=== PATIENT | male | born 1990 | race Caucasian/White ===

== ENCOUNTER 2020-07-17 15:44 | Day surgery (SDC) | payer OTHER ==
[2020-07-17] MEDS ORDERED: SODIUM CHLORIDE 0.9% 1,000 ML IV STA (16:26)
[2020-07-17] MEDS ORDERED: ONDANSETRON 4 MG/2 ML VIAL IVP STA (16:26)
[2020-07-17] MEDS ORDERED: HYDROmorphone 1 MG/ML CARPUJECT IVP STA ×3 (16:26→21:06)
[2020-07-17 16:31] LABS: BASOPHILS # (AUTO) 0.1 10^3/uL (0.0-0.1); BASOPHILS % (AUTO) 0.4 %; EOSINOPHILS % (AUTO) 0.2 %; HCT - HEMATOCRIT 49.2 % (42.0-52.0); HGB - HEMOGLOBIN 17.2 g/dL (14.0-18.0); LYMPHOCYTES # (AUTO) 1.2 10^3/uL (1.5-3.5); LYMPHOCYTES % (AUTO) 6.3 %; MEAN CORPUSCULAR HEMOGLOBIN 32.2 pg (27.0-31.0); MEAN CORPUSCULAR VOLUME 92.1 fL (80.0-94.0); MEAN PLATELET VOLUME 9.8 fL (7.4-11.4); MONOCYTES # (AUTO) 0.8 10^3/uL (0.0-1.0); MONOCYTES % (AUTO) 4.1 %; NEUTROPHILS # (AUTO) 17.1 10^3/uL (1.5-6.6); NEUTROPHILS % (AUTO) 88.5 %; PLT - PLATELET COUNT 326 10^3/uL (130-450); RED BLOOD COUNT 5.34 10^6/uL (4.70-6.10); WHITE BLOOD COUNT 19.4 x10^3/uL (4.8-10.8)
--- NOTE | 2020-07-17 16:43 | ED Physician Documentation ---
History of Present Illness - Stated complaint Stated Complaint: ABD PX - Chief complaint Chief Complaint: Abd Pain - History obtained from History obtained from: Patient - History of Present Illness Timing: Prior to arrival - Additonal information Additional information: 29-year-old male presents emergency department with acute onset lower abdominal pain. Began this a.m. after he had his regular bowel movement. He reports it began in the periumbilical area and migrated to the right lower quadrant. Has had persistent pain since. Has difficult time finding a comfortable position no fever or vomiting. No history of similar. Denies any history of previous surgical interventions. has a hx of asthma. takes ventolin. non smoker Otherwise healthy. Review of Systems Constitutional: reports: Reviewed and negative Ears: reports: Reviewed and negative Nose: reports: Reviewed and negative Throat: reports: Reviewed and negative Cardiac: reports: Reviewed and negative Respiratory: reports: Reviewed and negative GI: reports: Abdominal Pain. denies: Nausea, Vomiting, Constipation, Diarrhea : reports: Reviewed and negative Skin: reports: Rash Musculoskeletal: reports: Reviewed and negative Neurologic: reports: Reviewed and negative Psychiatric: reports: Reviewed and negative Endocrine: reports: Reviewed and negative PD PAST MEDICAL HISTORY - Past Medical History Past Medical History: No - Past Surgical History Past Surgical History: No - Present Medications Home Medications: Ambulatory Orders Medication Instructions Recorded Confirmed Albuterol Sulf [Ventolin Hfa 1 - 2 puffs INH Q4HR PRN 07/17/20 07/17/20 Inhaler] Fluticasone 44 Mcg [Flovent] 1 puffs INH BID 07/17/20 07/17/20 - Allergies Allergies/Adverse Reactions: Allergies Allergy/AdvReac Type Severity Reaction Status Date / Time No Known Drug Allergies Allergy Verified 07/17/20 15:54 - Social History Does the pt smoke?: No Smoking Status: Never smoker Does the pt drink ETOH?: No Does the pt have substance abuse?: No - Immunizations Immunizations are current?: Yes - POLST Patient has POLST: No PD ED PE NORMAL - General General: Alert and oriented X 3, No acute distress - HEENT HEENT: PERRL - Neck Neck: Supple, no meningeal sign - Cardiac Cardiac: RRR, No murmur - Respiratory Respiratory: No respiratory distress, Clear bilaterally - Abdomen Abdomen: Normal bowel sounds, Soft. No: Non tender (Focal tenderness right lower quadrant. Positive McBurney's. Negative Chowdhury's.) - Derm Derm: Warm and dry - Extremities Extremities: No deformity Results - Vitals Vitals: Vital Signs - 24 hr 07/17/20 07/17/20 07/17/20 15:51 15:53 17:45 Temperature 35.8 C L 36.5 C Heart Rate 92 92 60 Respiratory 16 16 20 Rate Blood Pressure 147/73 H 147/73 H 141/83 H O2 Saturation 97 97 99 Oxygen O2 Source Room air - Labs Labs: Laboratory Tests 07/17/20 07/17/20 07/17/20 15:59 16:10 16:10 WBC 19.4 H RBC 5.34 Hgb 17.2 Hct 49.2 MCV 92.1 MCH 32.2 H MCHC 35.0 RDW 12.0 Plt Count 326 MPV 9.8 Neut # (Auto) 17.1 H Lymph # (Auto) 1.2 L [place] # (Auto) 0.8 Eos # (Auto) 0.0 Baso # (Auto) 0.1 Absolute Nucleated RBC 0.00 Nucleated RBC % 0.0 Sodium 135 Potassium 3.8 Chloride 101 Carbon Dioxide 27 Anion Gap 7.0 BUN 14 Creatinine 0.7 Estimated GFR (MDRD) 132 Glucose 113 H Calcium 10.2 Total Bilirubin 1.2 H AST 30 ALT 25 Alkaline Phosphatase 46 Total Protein 8.2 Albumin 5.0 Globulin 3.2 Albumin/Globulin Ratio 1.6 Lipase 28 Urine Color YELLOW Urine Clarity CLEAR Urine pH 7.5 Ur Specific [place] 1.020 Urine Protein NEGATIVE Urine Glucose (UA) NEGATIVE Urine Ketones TRACE Urine Occult Blood NEGATIVE Urine Nitrite NEGATIVE Urine Bilirubin NEGATIVE Urine Urobilinogen 0.2 (NORMAL) Ur Leukocyte Esterase NEGATIVE Ur Microscopic Review NOT INDICATED Urine Culture Comments NOT INDICATED Nasal Adenovirus (PCR) Nasal B. parapertussis DNA (PCR) Nasal Coronavir 229E PCR Nasal Coronavir HKU1 PCR Nasal Coronavir NL63 PCR Nasal Coronavir OC43 PCR Nasal Enterovir/Rhinovir PCR Nasal Influenza B PCR Nasal Influenza A PCR Nasal Parainfluen 1 PCR Nasal Parainfluen 2 PCR Nasal Parainfluen 3 PCR Nasal Parainfluen 4 PCR Nasal RSV (PCR) Nasal B.pertussis DNA PCR Nasal C.pneumoniae (PCR) Abad Human Metapneumo PCR Nasal M.pneumoniae (PCR) Nasal SARS-CoV-2 (PCR) 12/24/20 16:48 WBC RBC Hgb Hct MCV MCH MCHC RDW Plt Count MPV Neut # (Auto) Lymph # (Auto) [place] # (Auto) Eos # (Auto) Baso # (Auto) Absolute Nucleated RBC Nucleated RBC % Sodium Potassium Chloride Carbon Dioxide Anion Gap BUN Creatinine Estimated GFR (MDRD) Glucose Calcium Total Bilirubin AST ALT Alkaline Phosphatase Total Protein Albumin Globulin Albumin/Globulin Ratio Lipase Urine Color Urine Clarity Urine pH Ur Specific [place] Urine Protein Urine Glucose (UA) Urine Ketones Urine Occult Blood Urine Nitrite Urine Bilirubin Urine Urobilinogen Ur Leukocyte Esterase Ur Microscopic Review Urine Culture Comments Nasal Adenovirus (PCR) NOT DETECTED Nasal B. parapertussis DNA (PCR) NOT DETECTED Nasal Coronavir 229E PCR NOT DETECTED Nasal Coronavir HKU1 PCR NOT DETECTED Nasal Coronavir NL63 PCR NOT DETECTED Nasal Coronavir OC43 PCR NOT DETECTED Nasal Enterovir/Rhinovir PCR NOT DETECTED Nasal Influenza B PCR NOT DETECTED Nasal Influenza A PCR NOT DETECTED Nasal Parainfluen 1 PCR NOT DETECTED Nasal Parainfluen 2 PCR NOT DETECTED Nasal Parainfluen 3 PCR NOT DETECTED Nasal Parainfluen 4 PCR NOT DETECTED Nasal RSV (PCR) NOT DETECTED Nasal B.pertussis DNA PCR NOT DETECTED Nasal C.pneumoniae (PCR) NOT DETECTED Abad Human Metapneumo PCR NOT DETECTED Nasal M.pneumoniae (PCR) NOT DETECTED Nasal SARS-CoV-2 (PCR) NOT DETECTED - Rads (name of study) CT abd Radiology: Final report received (Findings consistent with acute nonperforated appendicitis) PD MEDICAL DECISION MAKING - ED course Complexity details: reviewed results, re-evaluated patient, considered differential, d/w patient, d/w it infrastructure consultant (Liya) ED course: 29-year-old male presents the emergency department with acute right lower quadrant abdominal pain. Marked leukocytosis on CBC. No significant vital sign aberrations. A CT of the abdomen shows acute uncomplicated nonperforated appendicitis. 3.375 g of Zosyn has been ordered. At 1810 I did speak with Dr. Nickerson the surgeon on-call. He agrees to admit the patient likely overnight for surgical procedure in the a.m. Patient is to be n.p.o. Departure - Departure Disposition: ED Transfer to [facility] Clinical Impression: Acute appendicitis Qualifiers: Acute appendicitis type: other Qualified Code(s): K35.890 - Other acute appendicitis without perforation or gangrene; K35.89 - Other acute appendicitis
[2020-07-17] MEDS ORDERED: IOVERSOL 320 100 ML VIAL IVP ONE ×2 (17:02→17:32)
[2020-07-17 17:03] LABS: ALBUMIN/GLOBULIN RATIO 1.6 (1.0-2.2); BILIRUBIN,TOTAL 1.2 mg/dL (0.2-1.0); CALCIUM 10.2 mg/dL (8.5-10.3); CREATININE 0.7 mg/dL (0.6-1.2); POTASSIUM 3.8 mmol/L (3.5-5.0); TOTAL PROTEIN 8.2 g/dL (6.7-8.2)
[2020-07-17 17:25] LABS: BILIRUBIN,URINE NEGATIVE (NEGATIVE); GLUCOSE, URINE (UA) NEGATIVE (NEGATIVE); KETONES,URINE (UA) TRACE mg/dL (NEGATIVE); LEUKOCYTE ESTERASE, URINE NEGATIVE (NEGATIVE); NITRITE,URINE NEGATIVE (NEGATIVE); OCCULT BLOOD,URINE NEGATIVE (NEGATIVE); PH,URINE 7.5 PH (5.0-7.5); PROTEIN,URINE NEGATIVE (NEGATIVE); UROBILINOGEN,URINE 0.2 (NORMAL) E.U./dL (NORMAL)
[2020-07-17 17:27] LABS: CLARITY,URINE CLEAR (CLEAR)
--- NOTE | 2020-07-17 17:44 | CT Report ---
PROCEDURE: Abdomen/Pelvis W INDICATIONS: RLQ; r/o appy CONTRAST: IV CONTRAST: Optiray 320 ml: 100 PO CONTRAST: *NO PO CONTRAST TECHNIQUE: After the administration of IV contrast, 5 mm thick sections acquired from the diaphragms to the symp hysis. 5 mm thick coronal and sagittal reformats were acquired. For radiation dose reduction, the f ollowing was used: automated exposure control, adjustment of mA and/or kV according to patient size. COMPARISON: None. FINDINGS: Image quality: Excellent. ABDOMEN: Lung bases: Lung bases are clear. Heart size is normal. Solid organs: Liver and spleen are normal in size and enhancement. Gallbladder is normal Biliary s ystem is non dilated. Pancreas enhances normally. No adrenal nodules. Kidneys demonstrate normal s ize and enhancement, without hydronephrosis. Small left upper pole renal cyst. Peritoneum and bowel: There is an enlarged, partially fluid-filled appendix measuring up to 1.2 cm w ith trace periappendiceal inflammation. There is a small amount of stool present at the orifice. The appendix is retrocecal and directed towards the liver. Bowel loops otherwise demonstrate normal wall thickness and caliber. No free fluid or air. Nodes and vessels: No retroperitoneal or mesenteric adenopathy by size criteria. Aorta and inferior vena cava are normal in size. Miscellaneous: No ventral hernias. PELVIS: Genitourinary: Bladder wall thickness is normal. Miscellaneous: No inguinal hernias or adenopathy. Bones: No suspicious bony lesions. No vertebral body compression fractures. IMPRESSION: 1. Findings of acute, early appendicitis Reviewed by: Tracey Osei MD on 07/17/2020 5:43 PM PST Approved by: Tracey Osei MD on 07/17/2020 5:43 PM PST Station ID: [id number]
[2020-07-17 17:58] LABS: B. PARAPERTUSSIS- RESP PCR PAN NOT DETECTED; B. PERTUSSIS- RESP PCR PANEL NOT DETECTED; C. PNEUMONIAE- RESP PCR PANEL NOT DETECTED; CORONAVIRUS 229E-RESP PCR NOT DETECTED; CORONAVIRUS HKU1-RESP PCR NOT DETECTED; CORONAVIRUS NL63-RESP PCR NOT DETECTED; CORONAVIRUS OC43-RESP PCR NOT DETECTED; HUMAN METAPNEUMOVIRUS NOT DETECTED; INFLUENZA A- RESP PCR PANEL NOT DETECTED; INFLUENZA B - RESP PCR PANEL NOT DETECTED; M. PNEUMONIAE- RESP PCR PANEL NOT DETECTED; PARAINFLUENZA VIRUS 1 NOT DETECTED; PARAINFLUENZA VIRUS 2 NOT DETECTED; PARAINFLUENZA VIRUS 3 NOT DETECTED; PARAINFLUENZA VIRUS 4 NOT DETECTED; RHINOVIRUS/ENTEROVIRUS NOT DETECTED; RSV- RESP PCR PANEL NOT DETECTED; SARS-CoV-2 -RESP PCR PANEL NOT DETECTED
[2020-07-17] MEDS ORDERED: PIPERACILLIN/TAZOBACTAM 3.375 GM in SODIUM CHLORIDE 0.9% MINIBAG 100 ML IV STA (18:11)
--- NOTE | 2020-07-17 20:26 | SURGERY HX AND PHYSICAL(T) ---
Surgical History & Physical - Chief Complaint/HPI Chief Complaint: Abdominal pain consistent with acute appendicitis History of Present Illness: 29-year-old male presenting with 1 day of abdominal pain since early a.m. Denies nausea and vomiting. No diarrhea. After this morning's bowel movement unable to pass gas or have bowel movements thereafter. Last ate for breakfast. Work-up included CT scan as well as lab evaluation. Patient notable for a leukocytosis, also notable for appendicitis with inflammatory changes on computed tomography imaging. Patient with no prior surgical history. No personal family history of inflammatory bowel disease and/or Crohn's disease. No family history of colorectal cancer. Surgical consult called. - PMH/PSH/Social Hx Does the pt have a hx of MRSA?: No Smoking Status: Never smoker Does the pt drink ETOH?: No Does the pt have substance abuse?: No - Home Meds and Allergies Home Medications: Albuterol Sulf [Ventolin Hfa Inhaler] 1 - 2 puffs INH Q4HR PRN 07/17/20 Fluticasone 44 Mcg [Flovent] 1 puffs INH BID 07/17/20 Allergies/Adverse Reactions: Allergies Allergy/AdvReac Type Severity Reaction Status Date / Time No Known Drug Allergies Allergy Verified 07/17/20 15:54 - Review of Systems Constitutional: Fatigue, Fever Cardiac: No: AFIB, CAD Respiratory: No: Shortness of breath, Cough, Sputum, Other Gastrointestinal: Abdominal pain, Constipation. No: Nausea, Vomiting, Diarrhea - Vital Signs Heart Rate: 80 Blood Pressure: 135/78 Temperature: 99.3 C Respiratory Rate: 18 O2 Saturation: 100 Weight (kg): 72.575 kg Height: 1.73 m - Physical Exam General Appearance: positive: No acute distress, Alert, Mild distress Eyes Bilatera: positive: Normal inspection, PERRL, EOMI ENT: positive: ENT inspection nml Neck: positive: Nml inspection Respiratory: positive: Chest non-tender, No respiratory distress, Breath sounds nml. negative: Wheezes, Rales, Rhonchi Cardiovascular: positive: Regular rate & rhythm. negative: No murmur Abdomen: positive: Tenderness, Other (Positive distention mild, positive tenderness to palpation the right lower quadrant with localized rebound and guarding. No generalized peritoneal signs. No palpable hernias.). negative: Non-tender, No distention, Guarding, Rebound Extremities: positive: Non-tender, Full ROM, Nml appearance Neurologic/Psychiatric: positive: Oriented x3, CN's nml (2-12), Motor nml, Sensation nml, Mood/affect nml - Patient Review Patient Review: Problems were reviewed with the patient during this visit. Med ications were reviewed with the patient during this visit. Allergies were reviewed this patient during this visit. Pertinent Tests Reviewed: All pertitent test for this patient were reviewed. - Assessment & Plan Assessment and Plan: 29-year-old male presenting with acute appendicitis. Leukocytosis, CT with early acute appendicitis. Plan going forward is as follows: 1. Bowel rest, IV fluid resuscitation, IV antibiotics. 2. Preoperative chest x-ray, preoperative EKG, labs evaluated. 3. Planned diagnostic laparoscopy, laparoscopic appendectomy, other indicated procedures. Patient counseled of the risk associated with operative intervention including but not limited to conversion to open procedure, injury to local structures, and anesthesia risks of heart attack, stroke, . 4. Postoperative care under observation status with continued IV antibiotics. Impression CT abdomen pelvis: 1. Findings of acute early appendicitis. There is a large, partially fluid- filled appendix medic during up to 1.2 cm with trace periappendiceal inflammation. There is a small amount of stool present in the orifice. The appendix is retrocecal and directed towards the liver. Bowel loops otherwise demonstrated normal wall thickness and caliber. No free fluid or air. Please note that voice recognition software was used to transcribe this note and inadvertent errors might persist in spite of review and editing. I am obliged to you for your attention. I am thankful to you for allowing me to participate with you in this care of this patient.
[2020-07-17] MEDS ORDERED: ACETAMINOPHEN 325 MG TABLET PO PRN (20:30)
[2020-07-17] MEDS ORDERED: METOCLOPRAMIDE 10 MG/2 ML VIAL IVP PRN ×2 (20:30→20:34)
[2020-07-17] MEDS ORDERED: HYDROmorphone 0.5 MG/0.5 ML SYRINGE IVP PRN (20:30)
[2020-07-17] MEDS ORDERED: ONDANSETRON 4 MG/2 ML VIAL IVP PRN ×2 (20:30→20:34)
[2020-07-17] MEDS ORDERED: LACTATED RINGERS 1,000 ML IV SCH (21:00)
[2020-07-17] MEDS ORDERED: PIPERACILLIN/TAZOBACTAM 3.375 GM in SODIUM CHLORIDE 0.9% MINIBAG 100 ML IV SCH (21:00)
[2020-07-17] MEDS: LACTATED RINGERS 1,000 ML IV SCH (21:50)
[2020-07-17] MEDS: ACETAMINOPHEN 325 MG TABLET PO PRN (21:55)
[2020-07-17] MEDS: HYDROmorphone 0.5 MG/0.5 ML SYRINGE IVP PRN (22:19)
[2020-07-18] MEDS: PIPERACILLIN/TAZOBACTAM 3.375 GM in SODIUM CHLORIDE 0.9% MINIBAG 100 ML IV SCH ×5 (00:22→23:34)
[2020-07-18] MEDS: HYDROmorphone 0.5 MG/0.5 ML SYRINGE IVP PRN ×4 (00:46→10:09)
[2020-07-18] MEDS: ACETAMINOPHEN 325 MG TABLET PO PRN ×3 (05:04→20:16)
[2020-07-18] MEDS: PANTOPRAZOLE 40 MG VIAL IVP SCH (05:58)
[2020-07-18] MEDS: LACTATED RINGERS 1,000 ML IV SCH ×2 (08:36→20:00)
[2020-07-18] MEDS ORDERED: PROPOFOL 200 MG/20 ML VIAL IVP ONE (12:04)
[2020-07-18] MEDS ORDERED: MIDAZOLAM 2 MG/2 ML VIAL ONE (12:04)
[2020-07-18] MEDS ORDERED: LIDOCAINE-MPF 2% 5 ML VIAL ONE (12:04)
[2020-07-18] MEDS ORDERED: DEXAMETHASONE 4 MG/ML VIAL ONE (12:04)
[2020-07-18] MEDS ORDERED: ROCURONIUM 50 MG/5 ML VIAL ONE (12:04)
[2020-07-18] MEDS ORDERED: fentaNYL 100 MCG/2 ML VIAL ONE (12:04)
[2020-07-18] MEDS ORDERED: ONDANSETRON 4 MG/2 ML VIAL ONE (12:04)
[2020-07-18] MEDS ORDERED: ATROPINE ABBOJECT 1 MG/10 ML SYRINGE IVP PRN (12:06)
[2020-07-18] MEDS ORDERED: ONDANSETRON 4 MG/2 ML VIAL IVP PRN ×2 (12:06→13:37)
[2020-07-18] MEDS ORDERED: fentaNYL 100 MCG/2 ML VIAL IVP PRN (12:06)
[2020-07-18] MEDS ORDERED: NALOXONE 0.4 MG/ML VIAL IVP PRN (12:06)
[2020-07-18] MEDS ORDERED: HYDROmorphone 0.5 MG/0.5 ML SYRINGE IVP PRN ×2 (12:06→13:37)
[2020-07-18] MEDS ORDERED: MORPHINE 2 MG/ML CARPUJECT IVP PRN (12:06)
--- NOTE | 2020-07-18 12:06 | ANESTHESIA ---
Pre-Anesthesia VS, & Labs - Diagnosis Acute appendicitis - Procedure Lap. Appy Vital Signs: Temp Pulse Resp BP Pulse Ox 37.0 C 135 H 8 L 117/56 L 88 L 07/18/20 11:46 07/18/20 11:46 07/18/20 11:46 07/18/20 11:46 07/18/20 11:46 Height: 5 ft 8 in Weight (kg): 72.575 kg Body Mass Index: 24.3 BMI Classification: Healthy weight - NPO >8 hours - Lab Results Current Lab Results: Laboratory Tests 07/17/20 16:10: Sodium 135, Potassium 3.8, Chloride 101, Carbon Dioxide 27, Anion Gap 7.0, BUN 14, Creatinine 0.7, Estimated GFR (MDRD) 132, Glucose 113 H, Calcium 10.2, Total Bilirubin 1.2 H, AST 30, ALT 25, Alkaline Phosphatase 46, Total Protein 8.2, Albumin 5.0, Globulin 3.2, Albumin/Globulin Ratio 1.6, Lipase 28 07/17/20 16:10: WBC 19.4 H, RBC 5.34, Hgb 17.2, Hct 49.2, MCV 92.1, MCH 32.2 H, MCHC 35.0, RDW 12.0, Plt Count 326, MPV 9.8, Neut # (Auto) 17.1 H, Lymph # (Auto) 1.2 L, [facility] # (Auto) 0.8, Eos # (Auto) 0.0, Baso # (Auto) 0.1, Absolute Nucleated RBC 0.00, Nucleated RBC % 0.0 Fish Bones: 07/17/20 16:10 07/17/20 16:10 Home Medications and Allergies Home Medications: Ambulatory Orders Albuterol Sulf [Ventolin Hfa Inhaler] 1 - 2 puffs INH Q4HR PRN 07/17/20 Fluticasone 44 Mcg [Flovent] 1 puffs INH BID 07/17/20 Active Medications Acetaminophen (Acetaminophen 325 Mg Tablet) 650 mg PO Q6H PRN PRN Reason: Pain or Fever > 38C (100.4F) Last Admin: 07/18/20 11:03 Dose: 650 mg Documented by: Hydromorphone HCl (Hydromorphone 0.5 Mg/0.5 Ml Syringe) 0.5 mg IVP Q1H PRN PRN Reason: PAIN Last Admin: 07/18/20 10:09 Dose: 0.5 mg Documented by: Lactated Ringer's (Lr) 1,000 mls @ 100 mls/hr IV .Q10H [facility] Last Infusion: 07/18/20 12:04 Dose: 100 mls/hr Documented by: Piperacillin Sod/Tazobactam (Sod 3.375 gm/ Sodium Chloride) 100 mls @ 200 mls/hr IV Q6H [facility] Last Infusion: 07/18/20 12:03 Dose: Infused Documented by: Metoclopramide HCl (Metoclopramide 10 Mg/2 Ml Vial) 5 mg IVP Q6H PRN PRN Reason: Nausea / Vomiting Ondansetron HCl (Ondansetron 4 Mg/2 Ml Vial) 4 mg IVP Q6H PRN PRN Reason: Nausea / Vomiting Last Admin: 07/18/20 11:26 Dose: 4 mg Documented by: Pantoprazole Sodium (Pantoprazole 40 Mg Vial) 40 mg IVP QDAC [facility] Last Admin: 07/18/20 05:58 Dose: 40 mg Documented by: Albuterol Sulf [Ventolin Hfa Inhaler] 1 - 2 puffs INH Q4HR PRN 07/17/20 Fluticasone 44 Mcg [Flovent] 1 puffs INH BID 07/17/20 Allergies/Adverse Reactions: Allergies Allergy/AdvReac Type Severity Reaction Status Date / Time No Known Drug Allergies Allergy Verified 07/17/20 15:54 Anes History & Medical History - Anesthetic History Family history of Anesthesia Complications: Denies Family history of Malignant Hyperthermia: Denies - Medical History Cardiovascular: reports: None Pulmonary: reports: Asthma Gastrointestinal: reports: None Urinary: reports: None Neuro: reports: None Musculoskeletal: reports: None Endocrine/Autoimmune: reports: None Blood Disorders: reports: None Skin: reports: None Smoking Status: Never smoker Psychosocial: reports: No issues indicated History of Cancer?: No Exam General: Alert, Oriented x3, Cooperative, No acute distress Dental: WNL Mouth Openin Fingerbreadth Neck Mobility: Normal Mallampati classification: II Thyromental Distance: 4-6 cm Mental/Cognitive Status: Alert/Oriented X3, Normal for patient Plan Anesthesia Type: General Consent for Procedure(s) Verified and Reviewed: Yes Code Status: Attempt Resuscitation ASA classification: 2-Mild systemic disease Is this case an emergency?: Yes
[2020-07-18] MEDS ORDERED: LIDOCAINE 1% 50 ML MDV ONE (12:37)
[2020-07-18] MEDS ORDERED: BUPIVACAINE 0.5%-EPI 1:200000 PF 30 ML VIAL ONE (12:38)
[2020-07-18] MEDS ORDERED: BUPIVACAINE 0.5%-EPI 1:200000 PF 30 ML VIAL SUBQ ONE (12:43)
[2020-07-18] MEDS ORDERED: LIDOCAINE 1% 50 ML MDV SUBQ ONE (12:44)
[2020-07-18] MEDS ORDERED: KETOROLAC 30 MG/ML VIAL ONE (13:07)
[2020-07-18] MEDS ORDERED: GLYCOPYRROLATE 1 MG/5 ML VIAL ONE (13:19)
[2020-07-18] MEDS ORDERED: NEOSTIGMINE 1 MG/1 ML 10 ML MDV ONE (13:19)
[2020-07-18] MEDS ORDERED: HYDROmorphone 1 MG/ML CARPUJECT ONE (13:23)
[2020-07-18] MEDS ORDERED: LACTATED RINGERS 1,000 ML IV ONE (13:31)
--- NOTE | 2020-07-18 13:45 | ANESTHESIA POST OP EVALUATION ---
Anesthesia Post Eval - Post Anesthesia Eval Vitals: Last Vital Signs Temp 38.4 C H 07/18/20 13:29 Pulse 109 H 07/18/20 13:29 Resp 16 07/18/20 13:29 BP 133/61 H 07/18/20 13:29 Pulse Ox 97 07/18/20 13:29 CV Function Including HR & BP: positive: Stable Pain Control: positive: Satisfactory Nausea & Vomiting: positive: Negative Mental Status: positive: Baseline Respiratory Status: Airway Patent Hydration Status: Satisfactory Anesthesia Complications: positive: None
--- NOTE | 2020-07-18 13:49 | OPERATIVE REPORT ---
Operative Report - General Procedure Date: 07/18/20 Planned Procedure: 1. Diagnostic laparoscopy 2. Laparoscopic appendectomy 3. Extensive lysis of adhesions 4. Abdominal washout 5. Open umbilical hernia repair Pre-Op Diagnosis: Acute appendicitis, abdominal pain, umbilical hernia. Procedure Performed: 1. Diagnostic laparoscopy 2. Laparoscopic appendectomy 3. Extensive lysis of adhesions 4. Abdominal washout 5. Open umbilical hernia repair Post Op Diagnosis: Same, nonperforated, suppurative appe. No feculent/purulent peritonitis. - Procedure Note Primary Surgeon: Liya Secondary Surgeon: Cesar Anesthesia Provider: Christiano Anesthesia Technique: General ET tube, Local Pathology: Appendix Estimated Blood Loss (mL): 10 Drain/Tube Type: Other (NONE) Indications: See EMR Findings: 1. Suppurative, nonperforated appendicitis. 2. Large umbilical hernia performed for primary repair, suture 3. Dense right lower quadrant adhesions for which adhesiolysis was performed 4. Hemostasis at the conclusion of this case. Complications: NONE - Other Other Information/Narrative: OPERATIVE PROCEDURE: The patient was taken to the operating room, placed supine on the operating table. The patent was already obtained tor informed consent which was documented in the patients permanent medical record The patient was induced for general endotracheal anesthesia. The patient was positioned, off loaded and padded at all pressure points. The patient was placed for a Khan catheter and tucked for the left arm. The patient was prepped and draped in the usual sterile fashion. The patient was called for a time out which was agreed to all in the room. Open Manning technique was performed through umbilicus and umbilical trocar was placed. This was achieved with a circumlinear sathish-umbilical incision. This is taken through the subcutaneous fat, the umbilical stalk was dissected off and obvious hernia defect was appreciated. This was done without any injury to the umbilical skin. That nez perce defect was enlarged and accommodated Manning trocar without any complication. Insufflation was commenced which the patient tolerated to 15 mmHg well with no complication. Additional trocars were placed suprapubic and left lower quadrant under direct laparoscopic vision. At this time the patient was placed in Trendelenburg position with right side up and we proceeded to isolate the cecum which was densely adhered to the sidewall. Using laparoscopic electrocautery countertraction and extensive laparoscopic suction and irrigation we are able to mobilize the retrocecal appendix off the pelvic sidewall and lateral abdominal wall without complication. The appendix was continued to be mobilized and thereafter we achieved mobilization medially taking care to note the location of the ureter which was protected and identified throughout the entirety at this case especially given t he extent of the patients inflammatory changes. Ultimately the cecum was isolated free, and the appendix was thereafter completely mobilized off the abdominal and pelvic sidewall. At this time there were dense adhesions noted of the appendix to the ascending colon and cecum and this required careful dissection as well, both blunt and also using the suction commercial collections driver and laparoscopic Bovie electrocautery. At this time a [place] was used to dissect the cecal-appendiceal junction and thereafter using a ENDOGIA linear cutting stapler, the appendix was divided at the base to include portion at the cecum. The ileocecal valve was identified and protected throughout with no involvement. At this time, we continued to mobilize the appendix off the ascending colon and caecum making sure there was no inadvertent injury to the ascending colon and the cecum which was again densely adhered to the appendix. This was performed with great care using blunt as well as suction irrigation laparoscopic and laparoscopic Bovie electrocautery. The mesoappendix was divided using another vascular load of the laparoscopic Endo AMEE linear cutting stapler. We aggressively assess for hemostasis which was achieved as necessary using Bovie electrocautery diligently. Dissection and ultimately isolated and dissected free the appendix which was placed into an Endo Catch bag for control of any further spillage. The appendiceal staple line and mesoappendix staple line and ligature were evaluated and hemostatic. At this time, we extensively irrigated the abdomen with greater than 2 liters of sterile saline and aspirated clear. At this time all trochars, secondary, were removed under direct laparoscopic visualization with no consequent bleeding. We removed the Manning trocar, passed the specimen off for permanent pathology. We closed the umbilical defect with several [id number]'s of 0 Vicryl, and performed umbilicoplasty simultaneous. A mixture of quarter percent Marcaine and 1% lidocaine were instilled within the wounds for a total of 40 cc. All skin and subcutaneous tissue was reapproximated with a subcuticular of 4-0 Monocryl. Wounds were dressed with Dermabond. I was present for the entirety of this operative intervention patient tolerated procedure well which is no complication. All counts were sponges needles and instruments were correct at the conclusion of this operative case. Please note that voice recognition software was used to transcribe this note and inadvertent errors might persist in spite of review and editing. I am obliged to you for your attention. I am thankful to you for allowing me to participate with you in this care of this patient.
[2020-07-18] MEDS ORDERED: ALBUTEROL NEB 2.5 MG/3 ML INH PRN (14:13)
[2020-07-18] MEDS: BUDESONIDE 0.5 MG/2 ML NEB INH SCH ×2 (14:48→18:13)
[2020-07-18] MEDS: oxyCODONE 5 MG TABLET PO PRN ×2 (16:21→20:16)
[2020-07-19] MEDS: ACETAMINOPHEN 325 MG TABLET PO PRN ×2 (00:16→06:10)
[2020-07-19] MEDS: oxyCODONE 5 MG TABLET PO PRN ×3 (00:16→10:21)
[2020-07-19] MEDS: BUDESONIDE 0.5 MG/2 ML NEB INH SCH (06:07)
[2020-07-19] MEDS: PIPERACILLIN/TAZOBACTAM 3.375 GM in SODIUM CHLORIDE 0.9% MINIBAG 100 ML IV SCH (06:12)
[2020-07-19] MEDS: PANTOPRAZOLE 40 MG VIAL IVP SCH (06:13)
[2020-07-19] MEDS: LACTATED RINGERS 1,000 ML IV SCH (07:44)
--- NOTE | 2020-07-19 10:31 | Discharge Plan ---
Discharge Plan Problem Reviewed?: Yes Disposition: Home, Self Care Condition: Good Prescriptions: oxyCODONE [Roxicodone] 5 mg PO Q4HR PRN #24 tablet PRN Reason: Pain Amox/Clav 875/125 [Augmentin] 1 each PO Q12H #28 tablet Docusate Sodium 100Mg Capsule [Colace 100Mg Capsule] 100 mg PO BID #60 capsule polyethylene glycoL 3350 [Miralax] 17 gm PO DAILY #1 bottle Pantoprazole [Protonix inj] 40 mg IVP QDAC #30 vial Diet: Regular Activity Restrictions: No Restrictions Shower Restrictions: No Driving Restrictions: Yes (not while taking pain medications) Instruction Topics: Appendectomy, Appendicitis, Hernia Surg Additional Instructions or Follow Up instructions: DISCHARGE INSTRUCTIONS TEMPLATE: No heavy lifting, pushing, or pulling. Stairs are allowed, no strenuous/exertional activities. 5-10lbs weight carrying limit (i.e. gallon of milk) If provided, abdominal binder while out of bed and while ambulating. Call or proceed to clinic/ER for fevers, severe pain, nausea, vomiting, inability to pass flatus/stool, bleeding, wound redness/discharge, weakness, excessively loose stool/diarrhea, or for any other reasonably worrisome symptom or concern. Soft diet, no raw vegetables, avoid high fiber foods. Colace 100mg by mouth twice to three times daily while taking narcotic pain medication. If no bowel movement in 24-48hr, may take 17g Miralax in 8oz water twice daily until bowel movement. May shower, no submersive bathing. Follow up in clinic in 2-4 weeks for wound check and staple removal. No driving while taking narcotic pain medications. Follow up with primary care provider and/or medical subspecialist following discharge as well. Patient not allowed to drive self today or within 24 hours of surgery. No Smoking: If you smoke, Please STOP! Call for help. Follow-up with: Ben Nickerson MD [Provider Admit Priv/Credential] -
--- NOTE | 2020-07-19 10:37 | DISCHARGE SUMMARY ---
"Discharge Summary Admit Date: 07/17/20 Discharge Date: 07/19/20 Discharging Provider: Liya Code Status: Attempt Resuscitation Condition at Discharge: Good Discharge Disposition: 01 Home, Self Care - DIAGNOSES Admission Diagnoses: 1. Abdominal pain 2. Appendicitis 3. SIRS concerning for sepsis Discharge Diagnoses with Status of Each Condition: 1. Abdominal pain - RESOLVED 2. Appendicitis - RESOLVED 3. SIRS concerning for sepsis secondary to appendicitis - RESOLVED 4. Suppurative nonperforated appendicitis - RESOLVED 5. Umbilical hernia - RESOLVED/REPAIRED - HPI History of Present Illness: 29-year-old male presenting with 1 day of abdominal pain since early a.m. Denies nausea and vomiting. No diarrhea. After this morning's bowel movement unable to pass gas or have bowel movements thereafter. Last ate for breakfast. Work-up included CT scan as well as lab evaluation. Patient notable for a leukocytosis, also notable for appendicitis with inflammatory changes on computed tomography imaging. Patient with no prior surgical history. No personal family history of inflammatory bowel disease and/or Crohn's disease. No family history of colorectal cancer. Surgical consult called. - CONSULTS | PROCEDURES Consultations: NONE Procedures: Pre-Op Diagnosis: Acute appendicitis, abdominal pain, umbilical hernia. Procedure Performed: 1. Diagnostic laparoscopy 2. Laparoscopic appendectomy 3. Extensive lysis of adhesions 4. Abdominal washout 5. Open umbilical hernia repair Post Op Diagnosis: Same, nonperforated, suppurative appe. No feculent/purulent peritonitis. - HOSPITAL COURSE Hospital Course: 29-year-old male presenting with acute appendicitis. Leukocytosis, CT with early acute appendicitis. Plan going forward is as follows: 1. Bowel rest, IV fluid resuscitation, IV antibiotics. 2. Preoperative chest x-ray, preoperative EKG, labs evaluated. 3. Planned diagnostic laparoscopy, laparoscopic appendectomy, other indicated procedures. Patient counseled of the risk associated with operative intervention including but not limited to conversion to open procedure, injury to local structures, and anesthesia risks of heart attack, stroke, . 4. Postoperative care under observation status with continued IV antibiotics. Impression CT abdomen pelvis: 1. Findings of acute early appendicitis. There is a large, partially fluid- filled appendix medic during up to 1.2 cm with trace periappendiceal inflammation. There is a small amount of stool present in the orifice. The ap pendix is retrocecal and directed towards the liver. Bowel loops otherwise demonstrated normal wall thickness and caliber. No free fluid or air. Please note that voice recognition software was used to transcribe this note and inadvertent errors might persist in spite of review and editing. I am obliged to you for your attention. I am thankful to you for allowing me to participate with you in this care of this patient. Patient admitted with acute appendicitis. Patient underwent operative i ntervention as listed in the electronic medical record. Tolerated procedure well for which there was no complication. Patient was maintained on IV antibiotics perioperatively and postoperatively sec ondary to suppurative nonperforated appendicitis. Postoperatively the patient was managed for postoperative analgesia and resumption of bowel function. Patient had successfully passed trial of void. Tolerated oral intake without any complication. Denied nausea denied vomiting. Was advanced for diet without any complication. Was counseled that given evidence of suppuration in the setting of the patient's acute appendicitis would recommend continued antibiotics for 2 weeks; patient was maintained on antibiotics during the hospital stay. Discharge instructions given. Analgesia with oxycodone provided at time of discharge. Patient plan for follow-up and will be notified of pathology once returned. - ALLERGIES Allergies/Adverse Reactions: Allergies Allergy/AdvReac Type Severity Reaction Status Date / Time No Known Drug Allergies Allergy Verified 07/17/20 15:54 - MEDICATIONS Home Medications: Ambulatory Orders Medication Instructions Recorded Confirmed Albuterol Sulf [Ventolin Hfa 1 - 2 puffs INH Q4HR PRN 07/17/20 07/17/20 Inhaler] Acetaminophen [Tylenol] 650 mg PO Q6H PRN tablet 07/19/20 Amox/Clav 875/125 [Augmentin] 1 each PO Q12H #28 tablet 07/19/20 Budesonide [Pulmicort] 0.5 mg INH RTBID neb 07/19/20 Docusate Sodium 100Mg Capsule 100 mg PO BID #60 capsule 07/19/20 [Colace 100Mg Capsule] Fluticasone Propionate [Flovent 1 puffs INH BID 07/19/20 07/19/20 Diskus] Pantoprazole [Protonix inj] 40 mg IVP QDAC #30 vial 07/19/20 oxyCODONE [Roxicodone] 5 mg PO Q4HR PRN #24 tablet 07/19/20 polyethylene glycoL 3350 [Miralax] 17 gm PO DAILY #1 bottle 07/19/20 - PHYSICAL EXAM AT DISCHARGE General Appearance: positive: No acute distress, Alert Eyes Bilateral: positive: Normal inspection, PERRL, EOMI Neck: positive: Nml inspection Respiratory: positive: Chest non-tender, No respiratory distress, Breath sounds nml. negative: Wheezes, Rales, Rhonchi Cardiovascular: positive: Regular rate & rhythm Abdomen: positive: Other (Appropriately tender to palpation, no rebound, no guarding, soft. Wounds clean dry and intact.) Skin: positive: Color nml Extremities: positive: Non-tender, Full ROM, Nml appearance Neurologic/Psychiatric: positive: Oriented x3, CN's nml (2-12), Motor nml, Sen sation nml, Mood/affect nml - LABS Result Diagrams: 07/17/20 16:10 07/17/20 16:10 - DIAGNOSTIC IMAGING Diagnostic Imaging Results: Final report reviewed - SEPSIS Current Stage of Sepsis: Resolved Possible source of Sepsis: Other (Suppurative nonperforated appendicitis) - FOLLOW UP Follow Up: DISCHARGE INSTRUCTIONS TEMPLATE: No heavy lifting, pushing, or pulling. Stairs are allowed, no strenuous/exertional activities. 5-10lbs weight carrying limit (i.e. gallon of milk) If provided, abdominal binder while out of bed and while ambulating. Call or proceed to clinic/ER for fevers, severe pain, nausea, vomiting, inability to pass flatus/stool, bleeding, wound redness/discharge, weakness, excessively loose stool/diarrhea, or for any other reasonably worrisome symptom or concern. Soft diet, no raw vegetables, avoid high fiber foods. Colace 100mg by mouth twice to three times daily while taking narcotic pain medication. If no bowel movement in 24-48hr, may take 17g Miralax in 8oz water twice daily until bowel movement. May shower, no submersive bathing. Follow up in clinic in 2-4 weeks for wound check and staple removal. No driving while taking narcotic pain medications. Follow up with primary care provider and/or medical subspecialist following discharge as well. Complete course of antibiotics as instructed. Plan of Treatment: 1. Complete course of antibiotics for total of 14 days outpatient oral. 2. Antibiotics will be Augmentin twice daily; patient will take probiotic as well. 3. Patient to also follow-up in surgery clinic for wound check. 4. Patient to call or return to the hospital through ER for fevers, nausea, vomiting, abdominal pain or any other worrisome symptoms or concerns. 5. Patient not to return to any work capacity until seen in clinic. - TIME SPENT Time Spent in Discharge (Minutes): 45"
[2020-07-19 11:01] VITALS: BP 112/59
== END 2020-07-19 11:40 | disposition home or self-care (01) ==
LOC: ED 15:44 → SDS 20:34 → MS2 20:34 → SDS 07-19 11:40
PROVIDERS: ATTEND Surgery
PROC: 0DTJ4ZZ Resection of Appendix, Percutaneous Endoscopic Approach (ICD-10-PCS; principal; 2020-07-17)
DX: K35.80 Unspecified acute appendicitis (principal); K42.9 Umbilical hernia without obstruction or gangrene; K66.0 Peritoneal adhesions (postprocedural) (postinfection); J45.909 Unspecified asthma, uncomplicated; Z79.51 Long term (current) use of inhaled steroids
CPT/HCPCS: 0202U; 36415; 44970; 74177; 80053; 81003; 83690; 85025; 94640; 96361; 96365; 96375; 96376; 99285; A9270; J1170; J7120; J7626; Q9967; 81001; 87086; 88304

== ENCOUNTER 2020-07-21 17:11 | Outpatient (CLI) | payer OTHER ==
[2020-07-21 17:40] LABS: BASOPHILS # (AUTO) 0.1 10^3/uL (0.0-0.1); BASOPHILS % (AUTO) 0.7 %; EOSINOPHILS # (AUTO) 0.6 10^3/uL (0.0-0.7); EOSINOPHILS % (AUTO) 7.2 %; HGB - HEMOGLOBIN 13.7 g/dL (14.0-18.0); LYMPHOCYTES # (AUTO) 2.1 10^3/uL (1.5-3.5); LYMPHOCYTES % (AUTO) 24.9 %; MEAN CORPUSCULAR HEMOGLOBIN 31.2 pg (27.0-31.0); MEAN CORPUSCULAR HGB CONC 32.9 g/dL (32.0-36.0); MEAN CORPUSCULAR VOLUME 94.8 fL (80.0-94.0); MEAN PLATELET VOLUME 9.2 fL (7.4-11.4); MONOCYTES # (AUTO) 1.3 10^3/uL (0.0-1.0); NEUTROPHILS # (AUTO) 4.3 10^3/uL (1.5-6.6); NEUTROPHILS % (AUTO) 49.7 %; PLT - PLATELET COUNT 226 10^3/uL (130-450); RED BLOOD COUNT 4.39 10^6/uL (4.70-6.10); WHITE BLOOD COUNT 8.6 x10^3/uL (4.8-10.8)
== END 2020-07-21 17:12 | disposition home or self-care (01) ==
LOC: LAB 17:11
PROVIDERS: ATTEND Surgery
DX: K37 Unspecified appendicitis (principal); Z90.89 Acquired absence of other organs
CPT/HCPCS: 36415; 85025

== ENCOUNTER 2022-09-30 09:41 | Outpatient (CLI) | payer OTHER ==
[2022-09-30 12:04] LABS: BASOPHILS # (AUTO) 0.1 10^3/uL (0.0-0.1); BASOPHILS % (AUTO) 0.8 %; EOSINOPHILS # (AUTO) 0.4 10^3/uL (0.0-0.7); EOSINOPHILS % (AUTO) 3.2 %; HCT - HEMATOCRIT 46.9 % (42.0-52.0); HGB - HEMOGLOBIN 15.5 g/dL (14.0-18.0); LYMPHOCYTES # (AUTO) 2.4 10^3/uL (1.5-3.5); LYMPHOCYTES % (AUTO) 21.2 %; MEAN CORPUSCULAR HEMOGLOBIN 30.3 pg (27.0-31.0); MEAN CORPUSCULAR VOLUME 91.8 fL (80.0-94.0); MEAN PLATELET VOLUME 9.5 fL (7.4-11.4); MONOCYTES # (AUTO) 1.1 10^3/uL (0.0-1.0); MONOCYTES % (AUTO) 9.8 %; NEUTROPHILS # (AUTO) 7.2 10^3/uL (1.5-6.6); NEUTROPHILS % (AUTO) 64.3 %; PLT - PLATELET COUNT 331 10^3/uL (130-450); RED BLOOD COUNT 5.11 10^6/uL (4.70-6.10); RED CELL DISTRIBUTION WIDTH 12.7 % (12.0-15.0); WHITE BLOOD COUNT 11.2 x10^3/uL (4.8-10.8)
[2022-09-30 13:08] LABS: ALBUMIN 4.4 g/dL (3.2-5.5); ALBUMIN/GLOBULIN RATIO 1.3 (1.0-2.2); ALKALINE PHOSPHATASE 48 IU/L (42-121); ALT ALANINE AMINOTRANSFERASE 20 IU/L (10-60); AST ASPARTATE AMINOTRANSFERASE 16 IU/L (10-42); BILIRUBIN,TOTAL 0.4 mg/dL (0.2-1.0); BUN - BLOOD UREA NITROGEN 18 mg/dL (6-20); CALCIUM 10.5 mg/dL (8.5-10.3); CARBON DIOXIDE - CO2 29 mmol/L (21-32); CHLORIDE 106 mmol/L (101-111); CHOL/HDL RATIO 4.6 (<5.0); CHOLESTEROL 221 mg/dL; CREATININE 0.6 mg/dL (0.6-1.2); GFR - MDRD 156 (>89); GLUCOSE 104 mg/dL (70-100); HDL CHOLESTEROL 48 mg/dL; LDL CHOLESTEROL,CALCULATED 156 mg/dL; LDL/HDL RATIO 3.3 (<3.6); POTASSIUM 4.2 mmol/L (3.5-5.0); SODIUM 141 mmol/L (135-145); TOTAL PROTEIN 7.7 g/dL (6.7-8.2); TRIGLYCERIDES 86 mg/dL; VLDL CHOLESTEROL 17 mg/dL
[2022-09-30 13:15] LABS: THYROID STIMULATING HORMONE 1.19 uIU/mL (0.34-5.60)
== END 2022-09-30 09:42 | disposition home or self-care (01) ==
LOC: LAB.N 09:41
PROVIDERS: ATTEND Family Medicine
DX: R03.0 Elevated blood-pressure reading, without diagnosis of hypertension (principal); J45.909 Unspecified asthma, uncomplicated
CPT/HCPCS: 36415; 80053; 80061; 83721; 84443; 85025